=== PATIENT | male | born 1965 ===

== ENCOUNTER 2017-01-05 21:56 | Emergency (ER) | payer MEDICAID ==
[2017-01-05] MEDS ORDERED: Lidocaine 5% Patch TD STA (23:52)
[2017-01-05] MEDS ORDERED: Lidocaine 5% Patch TD ONE (23:58)
--- NOTE | 2017-01-06 00:48 | C.PDOC ---
History Of Present Illness 51 y/o male c/o right sided lower back pain for 2 weeks after going [place] the driving [place]. Patient notes that initially the pain went away, but returned 5 days ago and is getting worse each day. Pain radiates to the groin and buttock. no radiation down leg. worse with movement. Denies numbness, weakness , bladder or bowel incontinence, saddle anesthesia, or any other complaints. Patient took Doans (otc medication) with no relief in pain. Time Seen by Provider: 01/05/17 23:42 Chief Complaint (Nursing): Back Pain History Per: Patient History/Exam Limitations: no limitations Onset/Duration Of Symptoms: Days (2 weeks), Persistent Current Symptoms Are (Timing): Still Present Quality Of Discomfort: "Pain" Severity: Mild Associated Symptoms: denies: New Weakness, New Numbness Recent travel outside of the [place]: No Additional History Per: Patient Past Medical History Reviewed: Historical Data, Nursing Documentation, Vital Signs Vital Signs: Last Vital Signs Temp 98 F 01/06/17 00:54 Pulse 65 01/06/17 00:54 Resp 20 01/06/17 00:54 BP 153/77 H 01/06/17 00:54 Pulse Ox 98 01/07/17 03:32 - Medical History PMH: Asthma Family History: States: Unknown Family Hx - Social History Hx Alcohol Use: Yes Hx Substance Use: No - Immunization History Hx Tetanus Toxoid Vaccination: No Hx Influenza Vaccination: No Hx Pneumococcal Vaccination: No Review Of Systems Genitourinary: Negative for: Incontinence (Bladder or bowel) Musculoskeletal: Positive for: Back Pain (Right sided lower back pain) Neurological: Negative for: Weakness, Numbness, Other (saddle anesthesia) Physical Exam - Physical Exam Appears: Non-toxic, Other (uncomfortable) Skin: Warm, Dry Head: Atraumatic, Normacephalic Gastrointestinal/Abdominal: Soft, No Tenderness Back: No Vertebral Tenderness (No midline vertebral tenderness), Muscle Spasm ( Lower lumbar muscle spasm right side), Other (sciatic notch tenderness right side) Extremity: Normal ROM, No Calf Tenderness, Capillary Refill (<2secs) Pulses: Left Femoral: Normal, Right Femoral: Normal, Left Dorsalis Pedis: Normal , Right Dorsalis Pedis: Normal Neurological/Psych: Oriented x3, Normal Motor (lower extremities), Normal Sensation (lower extremities), Other (No focal deficit) Gait: Steady ED Course And Treatment O2 Sat by Pulse Oximetry: 98 (RA) Pulse Ox Interpretation: Normal Medical Decision Making Medical Decision Making: pt feeling much better with markedly decreased pain; will d/c home with nsaids, muscle relaxant and lidoderm patches; pt has appt with his doctor on Thu. Disposition Counseled Patient/Family Regarding: Diagnosis, Need For Followup, Rx Given - Disposition Referrals: Shaka Godfrey MD [Medical Doctor] - Disposition: HOME/ ROUTINE Disposition Time: 00:49 Condition: STABLE Additional Instructions: Take medications as prescribed; Wear lidoderm patch on for 12 hrs, then off for 12 hr before applying a new one. Do not drive or operate machinery when taking muscle relaxant. If going to work, then take only at bedtime. Follow up with your doctor on Thursday as scheduled. Return to ER for any worsening symptoms. Prescriptions: Cyclobenzaprine [Cyclobenzaprine HCl] 10 mg PO Q8 #9 tab Ibuprofen [Motrin] 600 mg PO TID #30 tab Lidocaine 5% [Lidoderm] 1 ea TD DAILY #6 patch Instructions: Acute Low Back Pain (ED), Muscle Spasm (ED) Forms: [facility] [employer] (Citizen Of [place]), General Discharge Instructions - Clinical Impression Clinical Impression: Lumbar sprain, Muscle spasm of back - Scribe Statement The provider has reviewed the documentation as recorded by the Scribmayela her All medical record entries made by the Indyibmayela were at my direction and personally dictated by me. I have reviewed the chart and agree that the record accurately reflects my personal performance of the history, physical exam, medical decision making, and the department course for this patient. I have also personally directed, reviewed, and agree with the discharge instructions and disposition.
[2017-01-06 00:55] VITALS: BP 153/77; PULSE 65; RESP 20; TEMP 98
[2017-01-06 05:46] VITALS: O2SAT 98
== END 2017-01-06 00:58 | disposition home or self-care (01) ==
LOC: C.ER 21:56
DX: S33.5XXA Sprain of ligaments of lumbar spine, initial encounter (principal); X58.XXXA Exposure to other specified factors, initial encounter; M62.830 Muscle spasm of back
CPT/HCPCS: 96372; 99283; J1885